=== PATIENT | female | born 1940 | race Caucasian/White ===

== ENCOUNTER 2017-03-02 10:23 | Emergency (ER) | payer OTHER, MEDICARE ==
[~2017-03-02] VITALS: Ht 162.6 cm; Wt 121.8 kg
[~2017-03-02 10:23] MED LIST: ACTOS45 MG PO; BABY ASPIRIN81 MG PO; LOVASTATIN40 MG PO; NOVOLOG (UNITS1 UNIT SC; PRINZIDE 20-251 EACH PO; RELION NOV100 UNIT/1 SQ; ZOFRAN4 MG PO
[2017-03-02 11:21] LABS: HEMATOCRIT 39.3 % (36.0-46.0); MCH 30.6 PG (29.0-34.0); MCHC 32.6 G/DL (30.0-36.0); MEAN PLAT.VOLUME 12.6 uM^3 (9.5-12.4); PLATELET COUNT 117 K/uL (156-360); RBC DIS.WIDTH-CV 15.2 % (11.8-14.6); RBC DIS.WIDTH-SD 52.8 % (39-53); RED BLOOD COUNT 4.18 M/uL (3.80-5.20); WHITE BLOOD COUNT 6.4 K/uL (4.1-10.2)
[2017-03-02 11:29] LABS: CHLORIDE 99 mEq/L (99-109); POTASSIUM 3.6 mEq/L (3.7-5.4); SODIUM 139 mEq/L (136-147)
[2017-03-02 11:31] LABS: GLUCOSE 161 mg/dL (70-99)
[2017-03-02 11:32] LABS: ANION GAP 12 MEQ/L (2-14)
[2017-03-02 11:33] LABS: TOTAL BILIRUBIN 0.5 mg/dL (0.0-1.0)
[2017-03-02 11:34] LABS: ALKALINE PHOSPHATASE 69 IU/L (3-129)
[2017-03-02 11:35] LABS: GFR ESTIMATE (CALCULATED) > 59 mL/min/
[2017-03-02 11:36] LABS: UREA NITROGEN (BUN) 10 mg/dL (9-23)
[2017-03-02 14:55] LABS: ADD MIUA? NO; BILIRUBIN NEGATIVE; BLOOD NEGATIVE; COLOR YELLOW ((YELLOW)); GLUCOSE (STRIP) 50; KETONES 20; LEUKOCYTES NEGATIVE; NITRITE NEGATIVE; PROTEIN (STRIP) NEGATIVE; SPECIFIC GRAVITY 1.012 (1.000-1.030); UCUL ADDED? NO
[2017-03-02] MEDS ORDERED: ZOFRAN4 MG PO (17:00)
[2017-03-02 17:08] VITALS: BP 137/57
== END 2017-03-02 17:45 | disposition home or self-care (01) ==
LOC: EME 10:23
DX: R10.9 Unspecified abdominal pain (principal); E11.9 Type 2 diabetes mellitus without complications; Z85.048 Personal history of other malignant neoplasm of rectum, rectosigmoid junction, and anus; Z93.3 Colostomy status; Z87.442 Personal history of urinary calculi; Z79.4 Long term (current) use of insulin; E78.5 Hyperlipidemia, unspecified; I10 Essential (primary) hypertension
CPT/HCPCS: 74177; 80053; 81003; 85027; 99281; 99284; J2405; J7030